=== PATIENT | female | born 1960 | race Caucasian/White ===

== ENCOUNTER 2017-11-29 12:00 | Inpatient (IN) | payer OTHER ==
[2017-11-16 10:29] VITALS: BMI 19.7
[2017-11-29] MEDS ORDERED: MIDAZOLAM HCL 2 MG/2 ML SINGLE DOSE VIAL ONE (19:07)
[2017-11-29] MEDS ORDERED: DEXAMETHASONE SOD PHOSPHATE/PF 10 MG/ML SDV ONE ×2 (19:07→19:41)
[2017-11-29] MEDS ORDERED: LIDOCAINE HCL/PF 2% SDV 5ML VIAL ONE (19:36)
[2017-11-29] MEDS ORDERED: VANCOMYCIN 1,000 MG VIAL (RESTRICTED TO ID ONLY) ONE (20:27)
[2017-11-29] MEDS ORDERED: ROPIVICAINE 0.2%/MORPH PF/KETOROLAC - 51ML DISP.SYRINGE IA ONE (20:28)
[2017-11-29] MEDS ORDERED: ONDANSETRON 4 MG/2 ML VIAL ONE (21:04)
[2017-11-29] MEDS ORDERED: ceFAZolin SODIUM 1 GM VIAL ONE ×2 (21:04→22:22)
[2017-11-29] MEDS ORDERED: PROPOFOL 20 ML ONE ×3 (21:05→22:47)
[2017-11-29] MEDS ORDERED: DEXAMETHASONE SOD PHOSPHATE 4 MG/1 ML VIAL ONE (21:16)
[2017-11-29] MEDS ORDERED: TRANEXAMIC ACID 1000 MG/10 ML VIAL ONE ×2 (21:41→21:51)
--- NOTE | 2017-11-29 23:11 | PN ---
Progress Note (short form) - Note Progress Note: 57F s/p left KIKO POD #0. -Pain control. -DVT PPx: - Chemical: ASA 81mg PO BID x 6 weeks. - Mechanical: DORINA's, SCD's. -Incentive spirometry. -PT/OT/Rehab, OOB. -WBAT LLE. -Left hip precautions. -Hip abduction pillow. -f/u drain output. -f/u post-op trial of void. -f/u AM labs. -Care per medical hospitalist team. -Discharge planning: [facility] [place] [facility]; call for appointment; . -Will follow. Reynaldo Cabral MD (Orthopaedic Surgery).
--- NOTE | 2017-11-29 23:18 | OP ---
Operative Note - Note: Operative Date: 11/29/17 Pre-Operative Diagnosis: Left hip DJD Operation: Left hip DJD & arthrofibrosis Findings: Arthrofibrosis left hip Implants: Ronny. Cup - Tritanium 54mm, cluster, 1 x acetabular screw (25mm). Stem - Accolade II, #9, 127 deg NSA (high offset). Poly - 28mm, neutral. Head - Delta Ceramic/Biolox, -2.7mm length Post-Operative Diagnosis: Same as Pre-op Surgeon: Reynaldo Cabral Per Diem Interpreter: Eder Cabral Anesthesiologist/LENO SEWER: Marcy Chavez Anesthesia: Spinal Specimens Removed: Left femoral head Estimated Blood Loss (mls): 600 Drains & Tubes with Location: 1 x deep HemoVac Fluid Volume Replaced (mls): 1,000 Operative Report Dictated: Yes
[2017-11-29] MEDS ORDERED: MAG HYDROX/AL HYDROX/SIMETH 30 ML UNIT-DOSE CUP PO PRN (23:19)
[2017-11-29] MEDS ORDERED: ONDANSETRON 4 MG/2 ML VIAL IVPUSH PRN ×2 (23:19→23:21)
[2017-11-29] MEDS ORDERED: MAGNESIUM HYDROX 2400MG/30ML ORAL SUSPENSION 30 ML CUP PO PRN (23:19)
[2017-11-29] MEDS ORDERED: LACTATED RINGERS SOLUTION 1,000 ML IV SCH (23:30)
[2017-11-29] MEDS ORDERED: ACETAMINOPHEN 1000 MG/100 ML VIAL (NON FORMULARY) IVPB ONE (23:30)
[2017-11-30] MEDS: GABAPENTIN 300 MG CAPSULE (FP) PO SCH ×3 (00:58→21:47)
[2017-11-30] MEDS: oxyCODONE HCL 5 MG TABLET PO PRN ×7 (01:10→20:21)
[2017-11-30] MEDS: CEFAZOLIN 1 GM/D5W 1 GM/50 ML BAG IVPB SCH ×2 (05:05→14:00)
[2017-11-30 08:38] LABS: HEMOGLOBIN 8.5 GM/dl (10.7-15.3); MCH 31.3 pg (25.7-33.7); MCHC 34.1 g/dl (32.0-36.0); MEAN CELL VOLUME 91.6 fl (80-96); MEAN PLT VOLUME 7.9 fl (7.5-11.1); PLATELET COUNT 187 K/MM3 (134-434); RBC 2.73 M/mm3 (3.60-5.2); RDW 16.2 % (11.6-15.6); WHITE BLOOD COUNT 11.2 K/mm3 (4.0-10.8)
--- NOTE | 2017-11-30 08:53 | CONSULT ---
Consultation: REQUESTING PROVIDER: Dr Cabral CONSULT REQUEST: We have been asked to medically evaluate this patient for medical management HISTORY OF PRESENT ILLNESS: Patient is a 57 y/o female, with a past medical history of left hip DJD. REVIEW OF SYSTEMS: CONSTITUTIONAL: Absent: fever, chills, diaphoresis, generalized weakness, malaise, loss of appetite, weight change HEENT: Absent: rhinorrhea, nasal congestion, throat pain, throat swelling, difficulty swallowing, mouth swelling, ear pain, eye pain, visual changes CARDIOVASCULAR: Absent: chest pain, syncope, palpitations, irregular heart rate, lightheadedness , peripheral edema RESPIRATORY: Absent: cough, shortness of breath, dyspnea with exertion, orthopnea, wheezing, stridor, hemoptysis GASTROINTESTINAL: Absent: abdominal pain, abdominal distension, nausea, vomiting, diarrhea, constipation, melena, hematochezia GENITOURINARY: Absent: dysuria, frequency, urgency, hesitancy, hematuria, flank pain, genital pain MUSCULOSKELETAL: present: left lower extremity pain Absent: myalgia, arthralgia, joint swelling, back pain, neck pain SKIN: Absent: rash, itching, pallor HEMATOLOGIC/IMMUNOLOGIC: Absent: easy bleeding, easy bruising, lymphadenopathy, frequent infections ENDOCRINE: Absent: unexplained weight gain, unexplained weight loss, heat intolerance, cold intolerance NEUROLOGIC: Absent: headache, focal weakness or paresthesias, dizziness, unsteady gait, seizure, mental status changes, bladder or bowel incontinence PSYCHIATRIC: Absent: anxiety, depression, suicidal or homicidal ideation, hallucinations. PHYSICAL EXAMINATION Vital Signs - 24 hr 11/29/17 11/29/17 11/29/17 13:19 13:22 23:15 Temperature 98.1 F 97.6 F Pulse Rate 85 90 Respiratory 16 14 Rate Blood Pressure 109/79 110/96 O2 Sat by Pulse 98 98 Oximetry (%) 11/29/17 11/29/17 11/29/17 23:20 23:25 23:30 Temperature Pulse Rate 91 H 91 H 78 Respiratory 14 15 15 Rate Blood Pressure 93/59 91/64 90/59 O2 Sat by Pulse 97 100 100 Oximetry (%) 11/29/17 11/30/17 11/30/17 23:45 00:00 00:17 Temperature 97.6 F 97.6 F Pulse Rate 78 78 78 Respiratory 15 15 15 Rate Blood Pressure 93/62 90/50 90/60 O2 Sat by Pulse 100 100 Oximetry (%) 11/30/17 11/30/17 11/30/17 00:25 01:44 06:17 Temperature 98 F 98.0 F 97.9 F Pulse Rate 97 H 97 H 96 H Respiratory 18 18 18 Rate Blood Pressure 103/57 103/57 97/61 O2 Sat by Pulse 98 98 97 Oximetry (%) GENERAL: Awake, alert, and fully oriented, in no acute distress. HEAD: Normal with no signs of trauma. EYES: Pupils equal, round and reactive to light, extraocular movements intact, sclera anicteric, conjunctiva clear. No lid lag. EARS, NOSE, THROAT: Ears normal, nares patent, oropharynx clear without exudates. Moist mucous membranes. NECK: Normal range of motion, supple without lymphadenopathy, JVD, or masses. LUNGS: Breath sounds equal, clear to auscultation bilaterally. No wheezes, and no crackles. No accessory muscle use. HEART: Regular rate and rhythm, normal S1 and S2 without murmur, rub or gallop. ABDOMEN: Soft, nontender, not distended, normoactive bowel sounds, no guarding, no rebound, no masses. No hepatomegaly or splenomegaly. MUSCULOSKELETAL: Normal range of motion at all joints. No bony deformities or tenderness. No CVA tenderness. UPPER EXTREMITIES: 2+ pulses, warm, well-perfused. No cyanosis. No clubbing. Cap refill <2 seconds. No peripheral edema. LOWER EXTREMITIES:scd/josh, less than 3 second capillary refill, + 3 pedal pulse , hemovac drain scant sang drainage, warm, well-perfused. No calf tenderness. No peripheral edema. NEUROLOGICAL: Cranial nerves II-XII intact. Normal speech. Normal gait. PSYCHIATRIC: Cooperative. Good eye contact. Appropriate mood and affect. SKIN: Warm, dry, normal turgor, no rashes or lesions noted. Laboratory Results - last 24 hr 11/30/17 07:30 WBC 11.2 H RBC 2.73 L Hgb 8.5 L Hct 25.0 L MCV 91.6 MCH 31.3 MCHC 34.1 RDW 16.2 H Plt Count 187 MPV 7.9 Active Medications Generic Name Dose Route Start Last Admin Trade Name Freq PRN Reason Stop Dose Admin Al Hydroxide/Mg Hydroxide 30 ml 11/29/17 23:19 Mylanta Oral Suspension - PO Q4H PRN DYSPEPSIA Aspirin 81 mg 11/30/17 10:00 Ecotrin - PO BID [facility] Gabapentin 300 mg 11/29/17 23:30 11/30/17 00:58 Neurontin - PO 300 mg BID ARI Administration Cefazolin Sodium 1 gm in 50 mls @ 100 mls/hr 11/30/17 06:00 11/30/17 05:05 Ancef 1 Gm Premixed Ivpb - IVPB 11/30/17 14:29 100 mls/hr Q8H ARI Administration Lactated Ringer's 1,000 mls @ 125 mls/hr 11/30/17 06:01 Lactated Ringers Solution IV ASDIR ARI Magnesium Hydroxide 30 ml 11/29/17 23:19 Milk Of Magnesia - PO DAILY PRN CONSTIPATION Ondansetron HCl 4 mg 11/29/17 23:19 Zofran Injection IVPUSH Q6H PRN NAUSEA Oxycodone HCl 5 mg 11/29/17 23:24 11/30/17 08:07 Roxicodone - PO 5 mg Q3H PRN Administration PAIN LEVEL 1-5 Oxycodone HCl 10 mg 11/29/17 23:24 11/30/17 04:01 Roxicodone - PO 10 mg Q3H PRN Administration PAIN LEVEL 6-10 Oxycodone HCl 10 mg 11/29/17 23:30 Oxycontin - PO 12/02/17 23:24 BID [facility] Pantoprazole Sodium 40 mg 11/30/17 10:00 Protonix - PO DAILY [facility] Senna/Docusate Sodium 1 tablet 11/30/17 10:00 Pericolace - PO BID [facility] ASSESSMENT/PLAN: 1) MS left THR, post op day 1 - physical therapy as per the orthodist - prn pain medication - monitor hgb, repeat hgb 8.5 stable close monitoring Dispo: We will continue to follow the patient. Thank you for this consultative opportunity. Visit type - Emergency Visit Emergency Visit: No - New Patient This patient is new to me today: Yes Date on this admission: 11/30/17 - Critical Care Critical Care patient: No
[2017-11-30 08:58] LABS: ANION GAP 7 (8-16); BLOOD UREA NITROGEN 18 mg/dl (7-18); CALCIUM 8.4 mg/dl (8.4-10.2); CHLORIDE 97 mmol/L (98-107); CO2 26 mmol/L (22-28); CREATININE 0.6 mg/dl (0.6-1.3); GLUCOSE,RANDOM 160 mg/dl (74-106); POTASSIUM 3.9 mmol/L (3.5-5.1); SODIUM 130 mmol/L (136-145)
--- NOTE | 2017-11-30 09:17 | OP ---
Pre-Operative Diagnosis: Osteoarthritis of the left hip. Post-Operative Diagnosis: Osteoarthritis of the left hip. Surgical Procedure: Left total hip replacement. Anaesthesia: Spinal, sedation. Position: Supine. Incision: Lateral. Estimated Blood Loss: 600cc. Intravenous Fluid: 1.7L crystalloid. Specimens: Left femoral head. Drains: 1 x superficial HemoVac. Complications: None. Urine output: None. Bacteriology: None. Transfusions: None. Closure: #1, 2-0 Vicryl & 3-0 Biosyn. Indications: The patient was indicated for a left total hip replacement in order to promote improved motion and mobilization, and to prevent complications associated with a sedentary lifestyle. The patient was identified in the holding area by her armband. A long discussion was held with the patient regarding the risks, benefits and alternatives of the above-named procedure. Risks include but are not limited to : pain, bleeding, infection, damage to surrounding structures (including nerves , blood vessels, skin, ligaments, tendons and bone), wound complications, failure of hardware/implants/reduction, need for further surgery, blood clots, myocardial infarction, pulmonary embolism, anaesthesia complications, compartment syndrome, limb loss, limp, loss of function, and . The patient understands that she is at increased risk of suffering many of the above-named possible risks due to her daily cigarette consumption. Benefits as mentioned above. Alternatives include no surgery. All questions were answered. The patient understood and agreed to the procedure. Informed consent was obtained, witnessed and verified. The patients correct operative limb - that being the left lower extremity - was marked, and the patient was taken to the operating room after being seen by the anesthesia and nursing staff. Procedure: The patient was brought into the operating room, placed on the OR table and secured with a safety strap. Consent and the operative site was again verified with the patient and nursing and anaesthesia staff. Anaesthesia was then administered without complication including 2g IV Ancef, 1g IV Vancomycin, & 1g IV TXA. A time out was done led by me, the attending surgeon. The patient was placed in the supine position with the greater trochanter lying at the edge of the table, thus freeing the muscles of the buttock from the table. All bony prominences were well padded. The non-operative limb was loosely secured to the operating table using a Kerlix bandage. With respect to the pelvis, the true limb lengths were accurately compared. The operative limb was prepped in standard sterile fashion using betadine prep & scrub, wiped off with alcohol, and DuraPrep applied. The operative limb was then free draped. With the patient in the supine position, a modified lateral (Hardinge) approach was utilized to access the hip. The skin incision was centered over the greater trochanter proximally, at the level of the anterior-superior iliac spine, and extended distally, ending 3-5cm distal to the vastus ridge, along the anterior border of the femur. Subcutaneous dissection was carried down to the level of the iliotibial band which was split longitudinally in line with its fibers. The gluteus sheila muscle was split proximally in line with its fibers to the level of the apex of the incision. A standard Charnley retractor was then placed subfascially to expose the deep structures. Using electrocautery, a hockey stick incision was utilized to split the anterior fibers of gluteus medius and gain access to the serg-lateral femur. This ended parallel to the femur at the entry point to the Gutierrez-Ojeda window. Electrocautery was then used to expose the anterior neck of the femur. The supero-lateral and infero-medial hip capsule was then incised and anterior radial capsular cuts were made as needed. An anterior acetabular retractor was then placed to facilitate exposure. The operative limb was adducted across the midline and the hip was externally rotated with the knee flexed using the tibia as a lever to facilitate an anterolateral hip dislocation. A femoral neck cut was made approximately 1cm proximal to the lesser trochanter using an oscillating saw. The femoral head was delivered out of the operative field. The operative limb was then brought back onto the table and the ankles were crossed. Posterior and inferior acetabular retractors were then placed. The acetabulum was then reamed in sequentially increasing diameter using sharp domed basket reamers. A final size 53mm reamer was used, ensuring concentric acetabular bone bed preparation. A Wilmore Tritanium 54mm cup was then impacted, achieving solid press fit in the desired orientation based on pelvic alignment. We elected to supplement cup fixation with a single 25mm acetabular cup fixation screw. A 28mm, neutral highly cross-linked UHMWPE liner was then implanted. All retractors were removed. The operative limb was adducted and externally rotated to allow visualization of the proximal femur. A sharp Hohmann retractor was placed posterior to the tip of the greater trochanter to protect the hip abductor. A box cutting osteotome was used to begin the femoral preparation. A sharp, end cutting reamer was used to manually gain entry to the femoral canal. Next, broaches were delivered via mallet strikes to prepare the proximal femoral bone bed for final implantation. The tibia was used as a goniometer with which we could accurately dial in our desired femoral anteversion. Modular femoral stem, neck, and head trial components were assembled and the hip was reduced. In the supine position, the operative limb was slightly longer than the non- operative limb due to contralateral hip disease. The hip was then reduced, and stability was ensured in all physiologic positions of compromise. This included flexion to 90 degrees with adduction and internal rotation. This also included extension and external rotation. At no point did the trunnion impinge upon the cup. A Ronny SecureFit Advanced #9 high offset stem was then implanted using mallet strikes until achieving solid press-fit. A Biolox/Delta Ceramic 28mm diameter, -2.7mm length head was then impacted using a protective head impactor and mallet strikes. As before, the hip was reduced and stability was ensured in all physiologic positions of compromise. Again, in the supine position, the operative limb was slightly longer than the non-operative limb. The operative limb satisfactorily lay in physiologic 15 degrees of external rotation. The wounds were copiously irrigated throughout the case and hemostatis was assured. Meticulous technique was implemented to avoid any implants coming into contact with free edges of the wound & skin. A deep HemoVac drain was utilized. The split gluteus medius muscle fibers were reattached using #1 vicryl sutures. The iliotibial band, gluteus sheila fascia, and subcutaneous tissues were closed using #1 and 2-0 vicryl sutures. The skin was closed using a running 3-0 Biosyn suture. A sterile compressive dressing was applied. A hip abduction pillow was placed between the legs. The patient was transferred to a hospital bed. A post-operative x-ray was taken with the patient on the hospital bed. This showed the hip to be well reduced with all implants in place and no evidence of leeanna-prosthetic fracture or retained foreign body. The patient was then transferred to the recovery room in stable condition, as per the anesthesia team, having tolerated the procedure well. MD RYAN Moyer/[id number] MTDD
[2017-11-30] MEDS: ASPIRIN COATED 81 MG TABLET.EC PO SCH ×2 (09:43→21:47)
[2017-11-30] MEDS: SENNOSIDES/DOCUSATE COMBO (SENNA PLUS) TABLET (UD) PO SCH ×2 (09:43→21:47)
[2017-11-30] MEDS: oxyCODONE HCL 10 MG SUSTAINED ACTING TABLET PO SCH ×3 (09:44→21:46)
[2017-11-30] MEDS: PANTOPRAZOLE 40 MG TABLET (FP) PO SCH (09:44)
--- NOTE | 2017-11-30 12:01 | PN ---
Progress Note (short form) - Note Progress Note: 57yo F s/p Lt hip arthroplasty POD 1, seen sitting up in chair. Pt states that she is doing well and that pain is controlled. Pt denies fever, chills, n/v. Pt ambulating with PT. Tolerating diet and is urinating. Last Vital Signs Temp Pulse Resp BP Pulse Ox 97.9 F 96 H 18 97/61 97 11/30/17 06:17 11/30/17 06:17 11/30/17 06:17 11/30/17 06:17 11/30/17 06:17 CBC, BMP 11/30/17 07:30 11/30/17 07:30 PE: Gen: A&O x3 Resp: breathing comfortably Ext: Left hip dressing in place with no erythema or discharge, drain in place with serosanguinous drainage. Problem List - Problems (1) Osteoarthritis, hip, bilateral Assessment/Plan: Plan: -pt doing well, continue PT and OOB as tolerated. Pt would prefer to go to outpatient rehab, Social work is aware and working on it. -incentive spirometry -DVT ppx -may be discharged once rehab situation is established Code(s): M16.0 - BILATERAL PRIMARY OSTEOARTHRITIS OF HIP
--- NOTE | 2017-11-30 13:42 | PN ---
Progress Note (short form) - Note Progress Note: 57F POD1 s/p L THR under spinal anesthetic with peripheral nerve block for post operative pain relief. Pt states that pain is well controlled and does not report any anesthetic complications. AVSS. Motor and sensory function intact in bilateral lower extremities. Continue current regimen.
[2017-12-01] MEDS: oxyCODONE HCL 5 MG TABLET PO PRN ×2 (04:25→13:11)
[2017-12-01] MEDS: LACTATED RINGERS SOLUTION 1,000 ML IV SCH (08:12)
[2017-12-01] MEDS: SENNOSIDES/DOCUSATE COMBO (SENNA PLUS) TABLET (UD) PO SCH (09:09)
[2017-12-01] MEDS: ASPIRIN COATED 81 MG TABLET.EC PO SCH (09:09)
[2017-12-01] MEDS: PANTOPRAZOLE 40 MG TABLET (FP) PO SCH (09:09)
[2017-12-01] MEDS: oxyCODONE HCL 10 MG SUSTAINED ACTING TABLET PO SCH (09:09)
[2017-12-01] MEDS: GABAPENTIN 300 MG CAPSULE (FP) PO SCH (09:09)
[2017-12-01 09:31] LABS: HEMATOCRIT 23.3 % (32.4-45.2); HEMOGLOBIN 7.9 GM/dl (10.7-15.3); MCH 31.3 pg (25.7-33.7); MCHC 33.8 g/dl (32.0-36.0); MEAN CELL VOLUME 92.7 fl (80-96); MEAN PLT VOLUME 7.9 fl (7.5-11.1); PLATELET COUNT 162 K/MM3 (134-434); RBC 2.51 M/mm3 (3.60-5.2); RDW 16.4 % (11.6-15.6); WHITE BLOOD COUNT 8.5 K/mm3 (4.0-10.8)
--- NOTE | 2017-12-01 10:21 | DS ---
Physical Exam: SUBJECTIVE: Patient seen and examined OBJECTIVE: Vital Signs Temperature 99.4 F 12/01/17 05:23 Pulse Rate 81 12/01/17 05:23 Respiratory Rate 18 12/01/17 05:23 Blood Pressure 94/48 12/01/17 05:23 O2 Sat by Pulse Oximetry (%) 100 12/01/17 05:23 PHYSICAL EXAM GENERAL: The patient is awake, alert, and fully oriented, in no acute distress. HEAD: Normal with no signs of trauma. EYES: PERRL, extraocular movements intact, sclera anicteric, conjunctiva clear. ENT: Ears normal, nares patent, oropharynx clear without exudates, moist mucous membranes. NECK: Trachea midline, full range of motion, supple. LUNGS: Breath sounds equal, clear to auscultation bilaterally, no wheezes, no crackles, no accessory muscle use. HEART: Regular rate and rhythm, S1, S2 without murmur, rub or gallop. ABDOMEN: Soft, nontender, nondistended, normoactive bowel sounds, no guarding, no rebound, no hepatosplenomegaly, no masses. EXTREMITIES: 2+ pulses, warm, well-perfused, no edema. NEUROLOGICAL: Cranial nerves II through XII grossly intact. Normal speech, gait not observed. PSYCH: Normal mood, normal affect. SKIN: Warm, dry, normal turgor, no rashes or lesions noted. LABS CBC,CMP WBC 8.5 K/mm3 (4.0-10.8) 12/01/17 07:30 RBC 2.51 M/mm3 (3.60-5.2) L 12/01/17 07:30 Hgb 7.9 GM/dl (10.7-15.3) L 12/01/17 07:30 Hct 23.3 % (32.4-45.2) L 12/01/17 07:30 MCV 92.7 fl (80-96) 12/01/17 07:30 MCH 31.3 pg (25.7-33.7) 12/01/17 07:30 MCHC 33.8 g/dl (32.0-36.0) 12/01/17 07:30 RDW 16.4 % (11.6-15.6) H 12/01/17 07:30 Plt Count 162 K/MM3 (134-434) 12/01/17 07:30 MPV 7.9 fl (7.5-11.1) 12/01/17 07:30 Sodium 130 mmol/L (136-145) L 11/30/17 07:30 Potassium 3.9 mmol/L (3.5-5.1) 11/30/17 07:30 Chloride 97 mmol/L (98-107) L 11/30/17 07:30 Carbon Dioxide 26 mmol/L (22-28) 11/30/17 07:30 Anion Gap 7 (8-16) L 11/30/17 07:30 BUN 18 mg/dl (7-18) 11/30/17 07:30 Creatinine 0.6 mg/dl (0.6-1.3) 11/30/17 07:30 Creat Clearance w eGFR > 60 (>60) 11/30/17 07:30 Random Glucose 160 mg/dl (74-106) H 11/30/17 07:30 Calcium 8.4 mg/dl (8.4-10.2) 11/30/17 07:30 HOSPITAL COURSE: Date of Admission:11/29/17 Date of Discharge: 12/01/17 The patient was admitted to the Med-Surg Unit after an elective repair of their (problem). Now, s/p ( procedure ). The day of surgery, the patient ambulated the hallways with assistance. Narcotic and non-narcotic pain management control was achieved with an oral and IV approach. POD #1, the surgical drain was removed fully intact and without incident. An xray was obtained and confirmed hardware placement at (level of ), no fractures or dislocations. Myrna-operative IV ABX were administered. DVT prophylaxis was achieved with SCDs and early ambulation. The patient ambulated with Physical Therapy and no services were recommended upon discharge. Narcotic scripts and or muscle relaxants were checked with [place] [employer] prior to escibe. The discharge instructions and an oral pain management plan were reviewed with the patient. All questions answered. Above plan discussed with Dr. Huerta and agreed. Minutes to complete discharge: 45
--- NOTE | 2017-12-01 12:03 | DS ---
Physical Exam: SUBJECTIVE: POD #2 left KIKO patient seen and examined at bedside with no complaints. She has been OOB and ambulating with PT. She denies any CP, SOB, Fever or chills, she is voiding and tolerating her diet. OBJECTIVE: Vital Signs Period Temp Pulse Resp BP Sys/Chin Pulse Ox Last 24 Hr 98.4 F-99.4 F 81-86 17-18 91-94/48-59 96-100 PHYSICAL EXAM GENERAL: The patient is awake, alert, and fully oriented, in no acute distress. HEAD: Normal with no signs of trauma. EYES: sclera anicteric, conjunctiva clear. LUNGS: unlabored resp on RA, no accessory muscle use. ABDOMEN: Soft, nontender, nondistended, normoactive bowel sounds, no guarding, no rebound, no hepatosplenomegaly, no masses. EXTREMITIES: Left hip dressing c/d/i with surrounding tissue intact and no evidence of tracking d/c or collection. Thigh soft, supple with mild ttp throughout, Drain removed with tip fully intact and pressure dressing applied. B /L LE compartments soft, supple and non-tender with 2+ pulses, warm, well- perfused, 5/5 dorsi/plantar flexion NEUROLOGICAL: Cranial nerves II through XII grossly intact. Normal speech, gait not observed. PSYCH: Normal mood, normal affect. SKIN: Warm, dry, normal turgor, no rashes or lesions noted. LABS Laboratory Results - last 24 hr 0713/18 07:30 WBC 8.5 RBC 2.51 L Hgb 7.9 L Hct 23.3 L MCV 92.7 MCH 31.3 MCHC 33.8 RDW 16.4 H Plt Count 162 MPV 7.9 HOSPITAL COURSE: Date of Admission:18 The patient was admitted to the Med-Surg Unit after Left KIKO. Now, s/p Left KIKO. An xray was obtained in the OR and confirmed hardware placement in good position with no fractures or dislocations. The day of surgery, the patient ambulated the hallways with assistance. Narcotic and non-narcotic pain management control was achieved with an oral and IV approach. POD #2, the surgical drain was removed fully intact and without incident. Myrna-operative IV ABX were administered. DVT prophylaxis was achieved with SCDs and early ambulation. The patient ambulated with Physical Therapy and rehab was recommended. Narcotic scripts and were checked with [facility] prior to escibe. The discharge instructions and an oral pain management plan were reviewed with the patient. All questions answered. Date of Discharge: 12/01/17 Minutes to complete discharge: 25 Discharge Summary Reason For Visit: BILATERAL OA OF HIPS Current Active Problems Osteoarthritis, hip, bilateral (Acute) Condition: Good - Instructions Diet, Activity, Other Instructions: Dr. Cabral Discharge Instructions for Hip Replacement Post Operative Instructions Physical activity Physical Therapist will come to your home for the first 5 days. You will be set up with outpatient PT at your first post-operative visit. Use assistive devices for ambulation at all times. Weight bearing as tolerated on your surgical side. Wound care Leave your surgical dressing in place. Do not change the dressing until seen by your surgeon in the office. No baths or showers. Do not submerge your incision. Do not apply any ointments or lotions to your incision. Please call the office if your dressing is soiled/dirty or is falling off. Apply Graduated Compression Stockings (TEDS) to both lower extremities-remove daily for hygiene ONLY. Diet There are no dietary restrictions. Eat healthy, high-fiber foods. Drink 6 to 8 glasses of liquid each day. This will assist in keeping your bowels are regular. Pain management Any pain prescription medication ordered should be taken as prescribed for moderate to severe pain. Do not take additional Tylenol while taking Percocet. Posterior Hip Precautions: Do not cross the leg you had surgery on over your other leg. (Do not cross your legs.)Use an elevated toilet seat. Do not sit on low chairs or beds. Use purple pillow (abductor) when lying in bed. Take Aspirin 81 mg two times a day for a total of 6 weeks to prevent blood clots. Call Dr. Cabral for any of the following: Severe pain not relieved by medication Fever of 101 or higher Excessive bleeding or drainage on dressing Inability to urinate If you experience chest pain or shortness of breath, please seek emergency care immediately. Please call the office at to confirm your post-op appointment for the week following surgery. Disposition: HOME - Home Medications Comprehensive Discharge Medication List: Ambulatory Orders Celecoxib 200 mg PO DAILY 11/16/17 Famotidine [Pepcid -] 20 mg PO DAILY 11/16/17 Ibuprofen [Advil -] 400 mg PO ASDIR PRN 11/16/17 Naproxen Sodium [Aleve] 440 mg PO ASDIR PRN 11/16/17 Oxycodone HCl 5 mg PO ASDIR PRN 11/16/17 Simethicone [Gas-X] 125 mg PO ASDIR PRN 11/16/17 Problem List - Problems (1) Osteoarthritis, hip, bilateral Assessment/Plan: POD #2 Left KIKO doing well. 1) Continue ASA 81 BID x 6 weeks 2) WBAT with Walker and assist 3) d/c to rehab today Code(s): M16.0 - BILATERAL PRIMARY OSTEOARTHRITIS OF HIP This patient is new to me today: Yes Date on this admission: 12/01/17 Emergency Visit: No Critical Care patient: No - Discharge Referral Referred to [facility].: No
[2017-12-01 13:09] VITALS: PULSE 95; TEMP 98.4
[2017-12-01 13:20] VITALS: BP 96/53
--- NOTE | 2017-12-04 16:22 | PATH ---
Surgical Pathology Report Patient Name: ELIAS FONSECA Med. Rec. #: [id number] /Age/Gender: 1960 (Age: 57) / F Account: [id number] Location: [facility] MED-[facility]URG Taken: 11/30/2017 Received: 11/30/2017 Reported: 12/04/2017 Physicians: Reynaldo Cabral M.D. Specimen(s) Received LEFT FEMORAL HEAD Clinical History Left hip osteoarthritis Final Diagnosis LEFT FEMORAL HEAD, RESECTION: DEGENERATIVE JOINT DISEASE, LEFT HIP. Electronically Signed Amy Rojas M.D. Gross Description Received in formalin, labeled "left femoral head," is a 4.3 x 3.8 x 3.2 cm. deformed femoral head with a 1.5 cm in length portion of femoral neck attached. The margin of resection is smooth. There is a 4.2 cm greatest dimension area of eburnation present. The remaining articular surface is alvarez-yellow, granular and nodular. The underlying trabecular bone is yellow and hard. A roofing sales representative section is submitted in one cassette, following decalcification. [facility]
== END 2017-12-01 14:05 | DRG 470 ==
LOC: FM/S 12:40
PROVIDERS: ADMIT Orthopaedic Surgery Adult Reconstructive Orthopaedic Surgery; ATTEND Orthopaedic Surgery Adult Reconstructive Orthopaedic Surgery
PROC: 0SRB04Z Replacement of Left Hip Joint with Ceramic on Polyethylene Synthetic Substitute, Open Approach (ICD-10-PCS; principal; 2017-11-29 21:39)
DX: M16.12 Unilateral primary osteoarthritis, left hip (principal); M24.652 Ankylosis, left hip; F17.210 Nicotine dependence, cigarettes, uncomplicated
CPT/HCPCS: 36415; 73523-TC-FY; 80048; 85027; 88304-TC; 88311-TC; 97116-GP; 97162-GP; J0131

== ENCOUNTER 2018-02-16 06:12 | Inpatient (IN) | payer OTHER ==
[2018-02-07 15:05] VITALS: BMI 20.5
[2018-02-16] MEDS ORDERED: TRANEXAMIC ACID 1000 MG/10 ML VIAL ONE (06:51)
[2018-02-16] MEDS ORDERED: VANCOMYCIN 1,000 MG VIAL (RESTRICTED TO ID ONLY) ONE ×2 (06:51→07:52)
[2018-02-16] MEDS ORDERED: ceFAZolin SODIUM 1 GM VIAL ONE (06:51)
[2018-02-16] MEDS ORDERED: PROPOFOL 20 ML ONE ×4 (06:51→12:35)
[2018-02-16] MEDS ORDERED: ROPIVACAINE HCL 0.5% 30ML VIAL ONE (07:21)
[2018-02-16] MEDS ORDERED: MIDAZOLAM HCL 2 MG/2 ML SINGLE DOSE VIAL ONE ×2 (07:21→08:32)
[2018-02-16] MEDS ORDERED: DEXAMETHASONE SOD PHOSPHATE/PF 10 MG/ML SDV ONE (07:21)
[2018-02-16] MEDS ORDERED: EPINEPHrine/PF 1 MG/1 ML (1:1,000) AMPULE ONE (07:21)
[2018-02-16] MEDS ORDERED: CEFAZOLIN 2 GM in DEXTROSE 5%-WATER - 50 ML IVPB ONE (08:44)
[2018-02-16] MEDS ORDERED: VANCOMYCIN 1,000 MG in DEXTROSE 5%-WATER - 250 ML IVPB ONE (08:44)
[2018-02-16] MEDS ORDERED: TRANEXAMIC ACID 1000 MG/10 ML VIAL IVPUSH ONE (08:44)
[2018-02-16] MEDS ORDERED: PHENYLEPHRINE HCL 10 MG/1 ML SINGLE DOSE VIAL ONE (09:31)
[2018-02-16] MEDS ORDERED: LACTATED RINGERS SOLUTION 1,000 ML IV SCH ×2 (09:45→11:30)
[2018-02-16] MEDS ORDERED: BENZOIN/ALOE VERA/STORAX/TOLU 58 ML BOTTLE ONE (10:18)
--- NOTE | 2018-02-16 11:14 | PN ---
Progress Note (short form) - Note Progress Note: 57F s/p right KIKO POD #0. -Pain control. -DVT PPx: - Chemical: ASA 81mg PO BID x 6 weeks. - Mechanical: DORINA's, SCD's. -Incentive spirometry. -PT/OT/Rehab, OOB. -WBAT RLE. -Right hip precautions. -Hip abduction pillow. -f/u post-op trial of void. -f/u AM labs. -Care per medical hospitalist team. -Discharge planning: f/u Monday02/23/2018 at [facility] [place] office; call for appointment; . -Will follow. Reynaldo Cabral MD (Orthopaedic Surgery).
[2018-02-16] MEDS ORDERED: ONDANSETRON 4 MG/2 ML VIAL IVPUSH PRN (11:17)
[2018-02-16] MEDS ORDERED: MAG HYDROX/AL HYDROX/SIMETH 30 ML UNIT-DOSE CUP PO PRN (11:17)
[2018-02-16] MEDS ORDERED: MAGNESIUM HYDROX 2400MG/30ML ORAL SUSPENSION 30 ML CUP PO PRN (11:17)
--- NOTE | 2018-02-16 11:17 | OP ---
Operative Note - Note: Operative Date: 02/16/18 Pre-Operative Diagnosis: Right hip DJD Operation: Right total hip replacement Implants: [place]ny. Cup - Tritanium 56mm, cluster. Poly - 28mm, neutral. Stem - Accolade II, #8, High offset (127 deg NSA). Head - Biolox/Delta Ceramic, 28mm diameter, -2.7mm length. 1 x 25mm acetabular fixation screw Post-Operative Diagnosis: Other (DJD + severe arthrofibrosis) Surgeon: Reynaldo Cabral Debeaker: Eder Cabral Anesthesiologist/[employer]ED [employer] F[employer] WORKER: Matias Mas Anesthesia: Spinal Specimens Removed: Right femoral head Estimated Blood Loss (mls): 200 Fluid Volume Replaced (mls): 1,300 (Crystalloid) Operative Report Dictated: Yes
[2018-02-16] MEDS ORDERED: traZODone HCL 50 MG TABLET (FP) PO PRN (11:20)
[2018-02-16] MEDS ORDERED: ONDANSETRON 4 MG/2 ML VIAL IVPUSH ONE (11:42)
[2018-02-16] MEDS ORDERED: oxyCODONE HCL 5 MG TABLET PO ONE (12:15)
[2018-02-16] MEDS ORDERED: CLINDAMYCIN PHOSPHATE 600 MG/4 ML VIAL ONE (12:15)
[2018-02-16] MEDS ORDERED: oxyCODONE HCL 5 MG TABLET ONE (12:20)
--- NOTE | 2018-02-16 13:43 | CONSULT ---
Consultation: REQUESTING PROVIDER: Dr Cabral CONSULT REQUEST: We have been asked to medically evaluate this patient for medical management . HISTORY OF PRESENT ILLNESS: patient is 57-year-old female with a past medical history of chronic arthritis and DJD, patient is s/p right Total Hip replacement , February 16 2018, Dr Hallman, spinal anesthesia. REVIEW OF SYSTEMS: CONSTITUTIONAL: Absent: fever, chills, diaphoresis, generalized weakness, malaise, loss of appetite, weight change HEENT: Absent: rhinorrhea, nasal congestion, throat pain, throat swelling, difficulty swallowing, mouth swelling, ear pain, eye pain, visual changes CARDIOVASCULAR: Absent: chest pain, syncope, palpitations, irregular heart rate, lightheadedness , peripheral edema RESPIRATORY: Absent: cough, shortness of breath, dyspnea with exertion, orthopnea, wheezing, stridor, hemoptysis GASTROINTESTINAL: Absent: abdominal pain, abdominal distension, nausea, vomiting, diarrhea, constipation, melena, hematochezia GENITOURINARY: Absent: dysuria, frequency, urgency, hesitancy, hematuria, flank pain, genital pain MUSCULOSKELETAL: Present: right hip pain Absent: myalgia, arthralgia, joint swelling, back pain, neck pain SKIN: Absent: rash, itching, pallor HEMATOLOGIC/IMMUNOLOGIC: Absent: easy bleeding, easy bruising, lymphadenopathy, frequent infections ENDOCRINE: Absent: unexplained weight gain, unexplained weight loss, heat intolerance, cold intolerance NEUROLOGIC: Absent: headache, focal weakness or paresthesias, dizziness, unsteady gait, seizure, mental status changes, bladder or bowel incontinence PSYCHIATRIC: Absent: anxiety, depression, suicidal or homicidal ideation, hallucinations. PHYSICAL EXAMINATION Vital Signs - 24 hr 02/16/18 02/16/18 02/16/18 06:58 11:03 11:08 Temperature 98 F 97.3 F L Pulse Rate 79 87 85 Respiratory 16 12 14 Rate Blood Pressure 98/66 94/58 L 94/56 L O2 Sat by Pulse 100 100 Oximetry (%) 02/16/18 02/16/18 02/16/18 11:13 11:18 11:33 Temperature Pulse Rate 79 87 89 Respiratory 14 12 13 Rate Blood Pressure 93/60 95/61 95/62 O2 Sat by Pulse 100 100 100 Oximetry (%) 02/16/18 02/16/18 02/16/18 11:45 12:00 12:15 Temperature 97.3 F L Pulse Rate 89 88 71 Respiratory 13 12 16 Rate Blood Pressure 99/63 96/64 96/61 O2 Sat by Pulse 100 100 100 Oximetry (%) 02/16/18 02/16/18 12:20 12:40 Temperature 97.3 F L 87.8 F L Pulse Rate 88 72 Respiratory 16 17 Rate Blood Pressure 96/61 98/64 O2 Sat by Pulse Oximetry (%) GENERAL: Awake, alert, and fully oriented, in no acute distress. HEAD: Normal with no signs of trauma. EYES: Pupils equal, round and reactive to light, extraocular movements intact, sclera anicteric, conjunctiva clear. No lid lag. EARS, NOSE, THROAT: Ears normal, nares patent, oropharynx clear without exudates. Moist mucous membranes. NECK: Normal range of motion, supple without lymphadenopathy, JVD, or masses. LUNGS: Breath sounds equal, clear to auscultation bilaterally. No wheezes, and no crackles. No accessory muscle use. HEART: Regular rate and rhythm, normal S1 and S2 without murmur, rub or gallop. ABDOMEN: Soft, nontender, not distended, normoactive bowel sounds, no guarding, no rebound, no masses. No hepatomegaly or splenomegaly. MUSCULOSKELETAL: Normal range of motion at all joints. No bony deformities or tenderness. No CVA tenderness. UPPER EXTREMITIES: 2+ pulses, warm, well-perfused. No cyanosis. No clubbing. Cap refill <2 seconds. No peripheral edema. LOWER EXTREMITIES: 2+ pulses, warm, well-perfused. No calf tenderness. No peripheral edema. rIGHT LOWER EXTREMITY: SCD, Mihai's, aguacel dressing clean dry and intact, Less than 3 second capillary refill, + 3 pedal pulse NEUROLOGICAL: Cranial nerves II-XII intact. Normal speech. Normal gait. PSYCHIATRIC: Cooperative. Good eye contact. Appropriate mood and affect. SKIN: Warm, dry, normal turgor, no rashes or lesions noted. Laboratory Results - last 24 hr 02/16/18 07:40 HIV 1&2 Antibody Screen Negative HIV P24 Antigen Negative Active Medications Generic Name Dose Route Start Last Admin Trade Name Freq PRN Reason Stop Dose Admin Acetaminophen 650 mg 02/16/18 18:00 Tylenol - PO 02/19/18 17:59 Q6H ARI Al Hydroxide/Mg Hydroxide 30 ml 02/16/18 11:17 Mylanta Oral Suspension - PO Q4H PRN DYSPEPSIA Aspirin 81 mg 02/16/18 22:00 Asa - PO BID [facility] Fentanyl 50 mcg 02/16/18 10:05 Sublimaze Injection - IVPUSH [id number] PRN PAIN-PACU ORDER X 4 DOSES ONLY Gabapentin 300 mg 02/16/18 22:00 Neurontin - PO BID [facility] Cefazolin Sodium 1 gram in 50 mls @ 100 mls/hr 02/16/18 18:00 Ancef 1 Gm Premixed Ivpb - IVPB 02/17/18 02:29 Q8H-IV ARI Lactated Ringer's 1,000 mls @ 100 mls/hr 02/16/18 11:30 Lactated Ringers Solution IV 02/17/18 06:00 ASDIR ARI Magnesium Hydroxide 30 ml 02/16/18 11:17 Milk Of Magnesia - PO PRN PRN CONSTIPATION Ondansetron HCl 4 mg 02/16/18 11:17 Zofran Injection IVPUSH Q6H PRN NAUSEA Oxycodone HCl 5 mg 02/16/18 10:05 Roxicodone - PO Q3H PRN PAIN LEVEL 1-5 Oxycodone HCl 10 mg 02/16/18 10:05 Roxicodone - PO Q3H PRN PAIN LEVEL 6-10 Oxycodone HCl 10 mg 02/16/18 22:00 Oxycontin - PO 02/19/18 10:06 BID [facility] Pantoprazole Sodium 40 mg 02/17/18 10:00 Protonix - PO DAILY [facility] Senna/Docusate Sodium 2 tablet 02/16/18 22:00 Pericolace - PO BID [facility] Trazodone HCl 50 mg 02/16/18 11:20 Desyrel - PO HS PRN INSOMNIA ASSESSMENT/PLAN: 1) ms s/p right total Replacement, POD #0 - Continue when necessary pain medication - Physical therapy as per the orthopedist - monitor hemoglobin repeat hemoglobin in a.m. F/E/N - Regular diet - replete electrolytes prn ppx -asa as per orthopedist - protonix Dispo: We will continue to follow the patient. Thank you for this consultative opportunity. Visit type - Emergency Visit Emergency Visit: No - New Patient This patient is new to me today: No - Critical Care Critical Care patient: No
[2018-02-16] MEDS: oxyCODONE HCL 5 MG TABLET PO PRN ×3 (16:12→23:30)
[2018-02-16] MEDS: ACETAMINOPHEN 325 MG TABLET (FP) PO SCH ×2 (18:05→23:30)
[2018-02-16] MEDS: CEFAZOLIN 1 GM/D5W 1 GRAM/50 ML BAG IVPB SCH (18:05)
[2018-02-16] MEDS: GABAPENTIN 300 MG CAPSULE (FP) PO SCH (21:14)
[2018-02-16] MEDS: ASPIRIN 81 MG CHEWABLE TABLETS PO SCH (21:14)
[2018-02-16] MEDS: oxyCODONE HCL 10 MG SUSTAINED ACTING TABLET PO SCH (21:14)
[2018-02-16] MEDS: SENNOSIDES/DOCUSATE COMBO (SENNA PLUS) TABLET (UD) PO SCH (21:14)
[2018-02-17] MEDS: CEFAZOLIN 1 GM/D5W 1 GRAM/50 ML BAG IVPB SCH (01:15)
[2018-02-17] MEDS: oxyCODONE HCL 5 MG TABLET PO PRN ×2 (05:17→17:19)
[2018-02-17] MEDS: ACETAMINOPHEN 325 MG TABLET (FP) PO SCH ×3 (05:18→17:18)
[2018-02-17 09:55] LABS: ANION GAP 8 MMOL/L (8-16); BLOOD UREA NITROGEN 13 mg/dl (7-18); CALCIUM 8.8 mg/dl (8.4-10.2); CHLORIDE 103 mmol/L (98-107); CO2 25 mmol/L (22-28); CREATININE 0.4 mg/dl (0.6-1.3); GLUCOSE,RANDOM 109 mg/dl (74-106); POTASSIUM 3.6 mmol/L (3.5-5.1); SODIUM 136 mmol/L (136-145)
--- NOTE | 2018-02-17 10:04 | OP ---
DATE OF OPERATION: 02/16/2018 PREOPERATIVE DIAGNOSIS: Right hip degenerative joint disease. POSTOPERATIVE DIAGNOSIS: Right hip degenerative joint disease, plus arthrofibrosis. OPERATION PERFORMED: Right total hip replacement via modified anterolateral approach. IMPLANTS USED: [place] cup Tritanium 56-mm cluster, polyethylene 28-mm neutral, stem Accolade II size 8/127-degree high-offset head, 28-mm diameter -2.7-mm length, Delta ceramic/Biolox. ESTIMATED BLOOD LOSS: 200 mL CRYSTALLOID GIVEN: 1.3 L INTRAVENOUS ANTIBIOTICS: Ancef 2 g, vancomycin 1 g, 1 g loading dose TXA preoperative, 1 g TXA intraoperative administered. COMPLICATIONS: None. The remainder of this dictation will be inserted via KeyCAPTCHA. Reynaldo Cabral MD [id number]
[2018-02-17 10:12] LABS: HEMOGLOBIN 7.9 GM/dl (10.7-15.3); MCH 29.6 pg (25.7-33.7); MEAN CELL VOLUME 89.6 fl (80-96); MEAN PLT VOLUME 7.5 fl (7.5-11.1); PLATELET COUNT 203 K/MM3 (134-434); RBC 2.67 M/mm3 (3.60-5.2); RDW 16.9 % (11.6-15.6); WHITE BLOOD COUNT 9.5 K/mm3 (4.0-10.8)
[2018-02-17] MEDS: PANTOPRAZOLE 40 MG TABLET (FP) PO SCH (10:20)
[2018-02-17] MEDS: SENNOSIDES/DOCUSATE COMBO (SENNA PLUS) TABLET (UD) PO SCH ×2 (10:20→21:30)
[2018-02-17] MEDS: oxyCODONE HCL 10 MG SUSTAINED ACTING TABLET PO SCH ×2 (10:20→21:30)
[2018-02-17] MEDS: GABAPENTIN 300 MG CAPSULE (FP) PO SCH ×2 (10:20→21:29)
[2018-02-17] MEDS: ASPIRIN 81 MG CHEWABLE TABLETS PO SCH ×2 (10:20→21:30)
--- NOTE | 2018-02-17 21:29 | PN ---
Physical Exam: SUBJECTIVE: Patient seen and examined at bedside AAOx3. s/p R- hip replacement POD #1, patient has no complaints. She reports ambulating independently. OBJECTIVE: Vital Signs Period Temp Pulse Resp BP Sys/Chin Pulse Ox Last 24 Hr 97.9 F-98.6 F 73-87 17-19 82-92/47-61 96-100 GENERAL: The patient is awake, alert, and fully oriented, in no acute distress. HEAD: Normal with no signs of trauma. EYES: PERRL, extraocular movements intact, sclera anicteric, conjunctiva clear. No ptosis. ENT: Ears normal, nares patent, oropharynx clear without exudates, moist mucous membranes. NECK: Trachea midline, full range of motion, supple. LUNGS: Breath sounds equal, clear to auscultation bilaterally, no wheezes, no crackles, no accessory muscle use. HEART: Regular rate and rhythm, S1, S2 without murmur, rub or gallop. ABDOMEN: Soft, nontender, nondistended, normoactive bowel sounds, no guarding, no rebound, no hepatosplenomegaly, no masses. EXTREMITIES: 2+ pulses, warm, well-perfused, no edema. Moving all extremities freely. Surgical bandages C/D/I, surgical wound not visualized NEUROLOGICAL: Cranial nerves II through XII grossly intact. Normal speech, gait not observed. PSYCH: Normal mood, normal affect. SKIN: Warm, dry, normal turgor, no rashes or lesions noted Laboratory Results - last 24 hr 02/16/18 02/17/18 02/17/18 07:40 07:57 07:57 WBC 9.5 RBC 2.67 L Hgb 7.9 L Hct 24.0 L MCV 89.6 MCH 29.6 MCHC 33.0 RDW 16.9 H Plt Count 203 MPV 7.5 Sodium 136 Potassium 3.6 Chloride 103 Carbon Dioxide 25 Anion Gap 8 BUN 13 Creatinine 0.4 L Creat Clearance w eGFR > 60 Random Glucose 109 H D Calcium 8.8 Hep C Ab Diagnostic <0.1 Liver Fibrosis Interp Active Medications Generic Name Dose Route Start Last Admin Trade Name Freq PRN Reason Stop Dose Admin Acetaminophen 650 mg 02/16/18 18:00 02/17/18 17:18 Tylenol - PO 02/19/18 17:59 650 mg Q6H ARI Administration Al Hydroxide/Mg Hydroxide 30 ml 02/16/18 11:17 Mylanta Oral Suspension - PO Q4H PRN DYSPEPSIA Aspirin 81 mg 02/16/18 22:00 02/17/18 10:20 Asa - PO 81 mg BID ARI Administration Fentanyl 50 mcg 02/16/18 10:05 Sublimaze Injection - IVPUSH [id number] PRN PAIN-PACU ORDER X 4 DOSES ONLY Gabapentin 300 mg 02/16/18 22:00 02/17/18 10:20 Neurontin - PO 300 mg BID ARI Administration Magnesium Hydroxide 30 ml 02/16/18 11:17 Milk Of Magnesia - PO PRN PRN CONSTIPATION Ondansetron HCl 4 mg 02/16/18 11:17 Zofran Injection IVPUSH Q6H PRN NAUSEA Oxycodone HCl 5 mg 02/16/18 10:05 02/17/18 17:19 Roxicodone - PO 5 mg Q3H PRN Administration PAIN LEVEL 1-5 Oxycodone HCl 10 mg 02/16/18 10:05 02/17/18 05:17 Roxicodone - PO 10 mg Q3H PRN Administration PAIN LEVEL 6-10 Oxycodone HCl 10 mg 02/16/18 22:00 02/17/18 10:20 Oxycontin - PO 02/19/18 10:06 10 mg BID ARI Administration Pantoprazole Sodium 40 mg 02/17/18 10:00 02/17/18 10:20 Protonix - PO 40 mg DAILY ARI Administration Senna/Docusate Sodium 2 tablet 02/16/18 22:00 02/17/18 10:20 Pericolace - PO 2 tablet BID ARI Administration Trazodone HCl 50 mg 02/16/18 11:20 02/16/18 21:14 Desyrel - PO 50 mg HS PRN Administration INSOMNIA ASSESSMENT/PLAN: This is a 57 y/o woman with a PMHx of Chronic Arthritis and DJD. Admitted for Right Total Hip Replacement. Musculoskeletal: Chronic Arthritis, DJD s/p R-THR - POD #1 - Continue Tylenol Q6h, Oxycodone Q3h prn, Oxycontin, Gabapentin - Bowel Regimen - Incentive Spirometry - PT/OT/Rehab, OOB - Abductor Pillow per Ortho - Monitor H/H FEN - PO Fluids as Tolerated - Replete electrolytes as needed - Regular Diet DVT/GI ppx - OOB per ortho - SCDs - Asa per Ortho - Protonix Will continue to follow Problem List - Problems (1) Status post total hip replacement, right Code(s): Z96.641 - PRESENCE OF RIGHT ARTIFICIAL HIP JOINT (2) Osteoarthritis, hip, bilateral Code(s): M16.0 - BILATERAL PRIMARY OSTEOARTHRITIS OF HIP (3) DVT prophylaxis Code(s): IXM4041 - Visit type - Emergency Visit Emergency Visit: No - New Patient This patient is new to me today: Yes Date on this admission: 02/17/18 - Critical Care Critical Care patient: No - Discharge Referral Referred to [facility] No
[2018-02-18] MEDS: ACETAMINOPHEN 325 MG TABLET (FP) PO SCH ×5 (00:45→23:59)
[2018-02-18] MEDS: oxyCODONE HCL 5 MG TABLET PO PRN ×2 (06:42→21:15)
[2018-02-18] MEDS: PANTOPRAZOLE 40 MG TABLET (FP) PO SCH (09:16)
[2018-02-18] MEDS: SENNOSIDES/DOCUSATE COMBO (SENNA PLUS) TABLET (UD) PO SCH ×2 (09:16→21:16)
[2018-02-18] MEDS: ASPIRIN 81 MG CHEWABLE TABLETS PO SCH ×2 (09:16→21:15)
[2018-02-18] MEDS: GABAPENTIN 300 MG CAPSULE (FP) PO SCH ×2 (09:16→21:15)
[2018-02-18] MEDS: oxyCODONE HCL 10 MG SUSTAINED ACTING TABLET PO SCH ×2 (09:17→21:16)
[2018-02-18 09:44] LABS: HEMATOCRIT 23.4 % (32.4-45.2); HEMOGLOBIN 7.8 GM/dl (10.7-15.3); MCH 29.7 pg (25.7-33.7); MCHC 33.2 g/dl (32.0-36.0); MEAN CELL VOLUME 89.5 fl (80-96); MEAN PLT VOLUME 7.9 fl (7.5-11.1); PLATELET COUNT 196 K/MM3 (134-434); RBC 2.62 M/mm3 (3.60-5.2); RDW 16.6 % (11.6-15.6); WHITE BLOOD COUNT 9.7 K/mm3 (4.0-10.8)
--- NOTE | 2018-02-18 10:16 | PN ---
Physical Exam: SUBJECTIVE: Patient seen and examined. pt reports feeling better, Rt hip pain well controlled, denies,dizziness, weakness, abdominal pain, N/V/D, urinary symptoms. OBJECTIVE: Vital Signs Period Temp Pulse Resp BP Sys/Chin Pulse Ox Last 24 Hr 97.9 F-100.1 F 76-92 17-18 82-93/47-60 96-99 GENERAL: The patient is awake, alert, and fully oriented, in no acute distress. HEAD: Normal with no signs of trauma. EYES: PERRL, extraocular movements intact, sclera anicteric, conjunctiva clear. No ptosis. ENT: Ears normal, nares patent, oropharynx clear without exudates, moist mucous membranes. NECK: Trachea midline, full range of motion, supple. LUNGS: Breath sounds equal, clear to auscultation bilaterally, no wheezes, no crackles, no accessory muscle use. HEART: Regular rate and rhythm, S1, S2 without murmur, rub or gallop. ABDOMEN: Soft, nontender, nondistended, normoactive bowel sounds, no guarding, no rebound, no hepatosplenomegaly, no masses. EXTREMITIES: 2+ pulses, warm, well-perfused, no edema, Rt hip dsg D&I. NEUROLOGICAL: Cranial nerves II through XII grossly intact. Normal speech, gait not observed. PSYCH: Normal mood, normal affect. SKIN: Warm, dry, normal turgor, no rashes or lesions noted Laboratory Results - last 24 hr 02/17/18 02/18/18 07:57 07:00 WBC 9.5 9.7 RBC 2.67 L 2.62 L Hgb 7.9 L 7.8 L Hct 24.0 L 23.4 L MCV 89.6 89.5 MCH 29.6 29.7 MCHC 33.0 33.2 RDW 16.9 H 16.6 H Plt Count 203 196 MPV 7.5 7.9 Active Medications Generic Name Dose Route Start Last Admin Trade Name Freq PRN Reason Stop Dose Admin Acetaminophen 650 mg 02/16/18 18:00 02/18/18 06:42 Tylenol - PO 02/19/18 17:59 650 mg Q6H ARI Administration Al Hydroxide/Mg Hydroxide 30 ml 02/16/18 11:17 Mylanta Oral Suspension - PO Q4H PRN DYSPEPSIA Aspirin 81 mg 02/16/18 22:00 02/18/18 09:16 Asa - PO 81 mg BID ARI Administration Fentanyl 50 mcg 02/16/18 10:05 Sublimaze Injection - IVPUSH [id number] PRN PAIN-PACU ORDER X 4 DOSES ONLY Gabapentin 300 mg 02/16/18 22:00 02/18/18 09:16 Neurontin - PO 300 mg BID ARI Administration Magnesium Hydroxide 30 ml 02/16/18 11:17 Milk Of Magnesia - PO PRN PRN CONSTIPATION Ondansetron HCl 4 mg 02/16/18 11:17 Zofran Injection IVPUSH Q6H PRN NAUSEA Oxycodone HCl 5 mg 02/16/18 10:05 02/18/18 06:42 Roxicodone - PO 5 mg Q3H PRN Administration PAIN LEVEL 1-5 Oxycodone HCl 10 mg 02/16/18 10:05 02/17/18 05:17 Roxicodone - PO 10 mg Q3H PRN Administration PAIN LEVEL 6-10 Oxycodone HCl 10 mg 02/16/18 22:00 02/18/18 09:17 Oxycontin - PO 02/19/18 10:06 10 mg BID ARI Administration Pantoprazole Sodium 40 mg 02/17/18 10:00 02/18/18 09:16 Protonix - PO 40 mg DAILY ARI Administration Senna/Docusate Sodium 2 tablet 02/16/18 22:00 02/18/18 09:16 Pericolace - PO 2 tablet BID ARI Administration Trazodone HCl 50 mg 02/16/18 11:20 02/16/18 21:14 Desyrel - PO 50 mg HS PRN Administration INSOMNIA ASSESSMENT/PLAN: This is a 57 y/o woman with a PMHx of Chronic Arthritis and DJD. Admitted for Right Total Hip Replacement. * Chronic Arthritis, DJD s/p R-THR - POD #2 -Will continue Tylenol Q6h, Oxycodone Q3h prn, Oxycontin, Gabapentin - Bowel Regimen - Incentive Spirometry - PT/OT/Rehab, OOB - Abductor Pillow per Ortho - Monitor H/H - low grade fever, no leukocytosis - will check UA * Chronic Anemia - H/H 7.8/23.4 - - will check Fe studies, B12 and Folate - will check Stool occult - will transfuse 1 unit of blood and monitor * Hypotension - NS 500 cc bolus x1, will monitor BP closely -will cont on IVF - will monitor BP closely *FEN - PO Fluids as Tolerated - Replete electrolytes as needed - Regular Diet DVT/GI ppx - OOB per ortho - SCDs - Asa per Ortho - Protonix Dispo: Rehab placement Visit type - Emergency Visit Emergency Visit: Yes ED Registration Date: 02/16/18 Care time: The patient presented to the Emergency Department on the above date and was hospitalized for further evaluation of their emergent condition. - New Patient This patient is new to me today: Yes Date on this admission: 02/18/18 - Critical Care Critical Care patient: No
[2018-02-18] MEDS ORDERED: SODIUM CHLORIDE 500 ML IV STA (12:10)
[2018-02-18] MEDS ORDERED: SODIUM CHLORIDE 1,000 ML IV SCH (14:00)
[2018-02-18 15:50] LABS: URINE APPEARANCE Clear; URINE BILIRUBIN Negative (NEGATIVE); URINE COLOR Yellow; URINE GLUCOSE (UA) Negative (NEGATIVE); URINE KETONE Negative (NEGATIVE); URINE LEUK ESTERASE Negative (NEGATIVE); URINE NITRITE Negative (NEGATIVE); URINE PROTEIN Negative (NEGATIVE); URINE UROBILINOGEN 0.2 (0.2-1.0)
[2018-02-19 06:06] LABS: SERUM IRON SATURATION 3 % (15-55); TOTAL IRON BINDING CAPACITY 301 ug/dL (250-450); UIBC 292 ug/dL (131-425)
[2018-02-19] MEDS: ACETAMINOPHEN 325 MG TABLET (FP) PO SCH ×2 (06:12→12:57)
[2018-02-19 06:36] VITALS: TEMP 98.7
[2018-02-19 08:13] VITALS: BP 99/56; PULSE 80
[2018-02-19] MEDS: oxyCODONE HCL 5 MG TABLET PO PRN (08:13)
[2018-02-19 08:26] LABS: RBC 2.83 M/mm3 (3.60-5.2)
[2018-02-19 08:31] LABS: HEMATOCRIT 25.5 % (32.4-45.2); HEMOGLOBIN 8.2 GM/dl (10.7-15.3); WHITE BLOOD COUNT 8.9 K/mm3 (4.0-10.8)
[2018-02-19 08:32] LABS: BASO % 0.7 % (0-2.0); EOS % 2.1 % (0-4.5); LYMPH % 15.2 % (8-40); MCH 28.9 pg (25.7-33.7); MEAN CELL VOLUME 90.2 fl (80-96); MEAN PLT VOLUME 7.8 fl (7.5-11.1); PLATELET COUNT 206 K/MM3 (134-434)
--- NOTE | 2018-02-19 08:38 | DS ---
Physical Exam: SUBJECTIVE: Patient seen and examined, patient is ambulatory with walker and physical therapy, steady gait noted, denies any dizziness, chest pain or shortness of breath, reports minimal pain to the right lower extremity. OBJECTIVE: patient is 57-year-old female with a past medical history of chronic arthritis and DJD, patient is s/p right Total Hip replacement, February 16 2018 , Dr Hallman, spinal anesthesia. Vital Signs Period Temp Pulse Resp BP Sys/Chin Pulse Ox Last 24 Hr 97.6 F-99.0 F 72-85 17-19 77-106/42-67 95-100 PHYSICAL EXAM GENERAL: The patient is awake, alert, and fully oriented, in no acute distress. HEAD: Normal with no signs of trauma. EYES: PERRL, extraocular movements intact, sclera anicteric, conjunctiva clear. ENT: Ears normal, nares patent, oropharynx clear without exudates, moist mucous membranes. NECK: Trachea midline, full range of motion, supple. LUNGS: Breath sounds equal, clear to auscultation bilaterally, no wheezes, no crackles, no accessory muscle use. HEART: Regular rate and rhythm, S1, S2 without murmur, rub or gallop. ABDOMEN: Soft, nontender, nondistended, normoactive bowel sounds, no guarding, no rebound, no hepatosplenomegaly, no masses. EXTREMITIES: 2+ pulses, warm, well-perfused, no edema. RIGHT LOWER EXTREMITY: aguacel dressing CDI, scd/josh, less than 3 second capillary refill, + 3 pedal pulse. NEUROLOGICAL: Cranial nerves II through XII grossly intact. Normal speech, gait not observed. PSYCH: Normal mood, normal affect. SKIN: Warm, dry, normal turgor, no rashes or lesions noted. LABS Laboratory Results - last 24 hr 02/18/18 02/18/18 02/18/18 07:00 11:53 11:53 WBC 9.7 RBC 2.62 L Hgb 7.8 L Hct 23.4 L MCV 89.5 MCH 29.7 MCHC 33.2 RDW 16.6 H Plt Count 196 MPV 7.9 Absolute Neuts (auto) Neutrophils % Lymphocytes % Monocytes % Eosinophils % Basophils % Iron 9 L TIBC 301 Iron Saturation 3 L Ferritin Vitamin B12 Serum Folate 7 Urine Color Urine Appearance Urine pH Ur Specific Cushing Urine Protein Urine Glucose (UA) Urine Ketones Urine Blood Urine Nitrite Urine Bilirubin Urine Urobilinogen Ur Leukocyte Esterase Blood Type Antibody Screen Crossmatch 02/18/18 02/18/18 02/18/18 11:53 14:32 14:50 WBC RBC Hgb Hct MCV MCH MCHC RDW Plt Count MPV Absolute Neuts (auto) Neutrophils % Lymphocytes % Monocytes % Eosinophils % Basophils % Iron TIBC Iron Saturation Ferritin 21.5 Vitamin B12 736 Serum Folate Urine Color Yellow Urine Appearance Clear Urine pH 6.0 Ur Specific Cushing <= 1.005 Urine Protein Negative Urine Glucose (UA) Negative Urine Ketones Negative Urine Blood Negative Urine Nitrite Negative Urine Bilirubin Negative Urine Urobilinogen 0.2 Ur Leukocyte Esterase Negative Blood Type O NEGATIVE Antibody Screen Negative Crossmatch See Detail 02/18/18 02/19/18 15:06 07:00 WBC 8.9 RBC 2.83 L Hgb 8.2 L Hct 25.5 L MCV 90.2 MCH 28.9 MCHC 32.0 RDW 16.0 H Plt Count 206 MPV 7.8 Absolute Neuts (auto) 6.2 Neutrophils % 71.0 Lymphocytes % 15.2 Monocytes % 11.0 H Eosinophils % 2.1 Basophils % 0.7 Iron TIBC Iron Saturation Ferritin Vitamin B12 Serum Folate Urine Color Urine Appearance Urine pH Ur Specific Cushing Urine Protein Urine Glucose (UA) Urine Ketones Urine Blood Urine Nitrite Urine Bilirubin Urine Urobilinogen Ur Leukocyte Esterase Blood Type O NEGATIVE Antibody Screen Crossmatch HOSPITAL COURSE: patient was admitted to the medical surgical floor after an elective right total knee replacement, 02/16/2018, Dr Cabral, spinal anesthesai. patient ambulated to [facility] without any difficulty on postoperative day 1 with a physical therapist. Pain was controlled with both narcotic and non narcotic analesgics. Hemoglobin was noted to be 7.8 on postoperative day 2, patient was given 1 unit of packed red blood cell. Repeat hemoglobin today is 8.2. Patient was placed on iron supplementation. condition 1 episode of hypotension on postoperative day 2, which resolved with normal saline IV bolus. Patient is now normotensive. PLAN - discharge to SNF for short term rehab - strict follow up with Dr Cabral, on Monday, February 23 - return precautions reviewed with patient and patient verbalizes understanding Date of Admission:02/16/18 Date of Discharge: 02/19/18 Minutes to complete discharge: 45 Discharge Summary Reason For Visit: UNILATERAL PRIMARY OSTEOARTHRITIS RIGHT HIP Current Active Problems DVT prophylaxis (Acute) Status post total hip replacement, right (Acute) Condition: Improved - Instructions Diet, Activity, Other Instructions: Dr. Cabral Discharge Instructions for Hip Replacement Post Operative Instructions Physical activity full weight bearing daily Wound care Leave your surgical dressing in place. Do not change the dressing until seen by your surgeon in the office. No baths or hot tubs, you may shower, Do not submerge your incision. Do not apply any ointments or lotions to your incision. Please call the office if your dressing is soiled/dirty or is falling off. Apply Graduated Compression Stockings (TEDS) to both lower extremities-remove daily for hygiene ONLY. Diet There are no dietary restrictions. Eat healthy, high-fiber foods. Drink 6 to 8 glasses of liquid each day. This will assist in keeping your bowels are regular. Pain management continue tylenol for minimal pain and oxycodone for severe pain. Posterior Hip Precautions: Do not cross the leg you had surgery on over your other leg. (Do not cross your legs.)Use an elevated toilet seat. Do not sit on low chairs or beds. Use purple pillow (abductor) when lying in bed. Take Aspirin 81 mg two times a day for a total of 6 weeks to prevent blood clots. Call Dr. Cabral for any of the following: Severe pain not relieved by medication Fever of 101 or higher Excessive bleeding or drainage on dressing Inability to urinate If you experience chest pain or shortness of breath, please seek emergency care immediately. Please call the office at to confirm your post-op appointment for the week following surgery. Referrals: Reynaldo Cabral MD [Staff Physician] - Disposition: NURSING HOME FACILITY - Home Medications Comprehensive Discharge Medication List: Ambulatory Orders Simethicone [Gas-X] 125 mg PO ASDIR PRN 11/16/17 Aspirin Coated [Ecotrin -] 81 mg PO BID #90 tablet.ec 12/01/17 Sennosides/Docusate Sodium [Pericolace -] 1 tablet PO BID #90 tablet 12/01/17 oxyCODONE HCL [Roxicodone -] 5 mg PO Q6H PRN #28 tablet MDD 4 12/01/17 traZODone HCL [Trazodone HCl] 50 mg PO HS PRN 02/07/18 Famotidine [Pepcid -] 20 mg PO DAILY 02/16/18 This patient is new to me today: No Emergency Visit: No Critical Care patient: No - Discharge Referral Referred to [facility] No
[2018-02-19] MEDS ORDERED: FERROUS SO4 325 MG TABLET (FP) PO SCH (08:45)
[2018-02-19] MEDS: GABAPENTIN 300 MG CAPSULE (FP) PO SCH (09:40)
[2018-02-19] MEDS: PANTOPRAZOLE 40 MG TABLET (FP) PO SCH (09:40)
[2018-02-19] MEDS: ASPIRIN 81 MG CHEWABLE TABLETS PO SCH (09:40)
[2018-02-19] MEDS: oxyCODONE HCL 10 MG SUSTAINED ACTING TABLET PO SCH (09:40)
[2018-02-19] MEDS: SENNOSIDES/DOCUSATE COMBO (SENNA PLUS) TABLET (UD) PO SCH (09:41)
--- NOTE | 2018-02-19 11:42 | PN ---
Progress Note (short form) - Note Progress Note: 57F s/p right KIKO POD #3. Pain well controlled. Pt. felt lethargic yesterday; due to H/H ~ 7, pt. received 1U PRBC overnight. No other overnight events. Pt. denies overnight history of headaches, chest pain, shortness of breath, nausea, vomiting, chills, & sweats. (+) Voiding; (+) Flatus; (+) BM. Tolerating diet. (+) Walked in hallway. All labs and vitals reviewed. PE: AAO x 3, NAD. R-Hip: Dressing C/D/I. NVI distally. A/P: 57F s/p right KIKO POD #3. -Pain control. -DVT PPx: - Chemical: ASA 81mg PO BID x 6 weeks. - Mechanical: DORINA's, SCD's. -Incentive spirometry. -PT/OT/Rehab, OOB. -WBAT RLE. -Right hip precautions. -Hip abduction pillow. -f/u AM labs. -Care per medical hospitalist team. -Discharge planning: f/u Monday03/02/2018 at [facility] [place] office; call for appointment; . -Will follow. Reynaldo Cabral MD (Orthopaedic Surgery).
[2018-02-20 10:11] LABS: HCV ALPHA 2 MACRO CHART 111 mg/dL (110-276); HCV GGT 441 IU/L (0-60); NECRO.INFLAM ACT.SCORE 0.07 (0.00-0.17); NECROINFLAM. ACTIVITY GRADE A0-No activity (.)
--- NOTE | 2018-02-21 18:11 | PATH ---
Surgical Pathology Report Patient Name: ELIAS FONSECA Med. Rec. #: [id number] /Age/Gender: 1960 (Age: 57) / F Account: [id number] Location: [facility] MED-SURG Taken: 02/16/2018 Received: 02/20/2018 Reported: 02/21/2018 Physicians: Reynaldo Cabral M.D. 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 Electronically Signed Hetal Kang M.D. Gross Description Received in formalin, labeled "right femoral head," is a 5 x 5 x 4 cm. femoral head with attached 1.5 cm femoral neck. The margin of resection is smooth. Areas of eburnation are identified. Remainder of articular surface is yellow-alvarez and granular. The underlying trabecular bone is yellow and hard. A car sales representative section is submitted in one cassette, following decalcification. DORI/02/20/2018 fer/02/20/2018
== END 2018-02-19 14:10 | DRG 470 ==
LOC: FM/S 06:12
PROVIDERS: ADMIT Orthopaedic Surgery Adult Reconstructive Orthopaedic Surgery; ATTEND Orthopaedic Surgery Adult Reconstructive Orthopaedic Surgery
PROC: 0SR90JZ Replacement of Right Hip Joint with Synthetic Substitute, Open Approach (ICD-10-PCS; principal; 2018-02-16 09:13)
PROC: 30233N1 Transfusion of Nonautologous Red Blood Cells into Peripheral Vein, Percutaneous Approach (ICD-10-PCS; 2018-02-18)
DX: M16.11 Unilateral primary osteoarthritis, right hip (principal); M24.651 Ankylosis, right hip; D64.9 Anemia, unspecified; I95.81 Postprocedural hypotension
CPT/HCPCS: 36415; 36430; 73502-TC-RT; 80048; 81003; 82172; 82607; 82728; 82746; 82977; 83010; 83540; 83550; 83883; 84460; 85025; 85027; 86803; 86850; 86900; 86901; 86922; 87389; 88305-TC; 88311-TC; 94760; 97116-GP; J7030; P9038; P9058